=== PATIENT | female | born 1970 | race Caucasian/White ===

== ENCOUNTER 2021-04-10 00:23 | Observation (INO) ==
[2021-04-10 01:10] LABS: Basophils # 0.1 K/mcL (0.0-0.2); Basophils % 0.5 %; Eosinophils # 0.4 K/mcL (0.0-0.6); Eosinophils % 2.9 %; Hematocrit 44.7 % (35.3-44.9); Hemoglobin 14.6 g/dL (11.5-15.4); Immature Granulocytes % 0.2 % (0-4); Lymphocytes # 5.2 K/mcL (0.6-4.6); Lymphocytes % 40.4 %; Mean Corpuscular HGB Conc 32.7 g/dL (31.6-35.5); Mean Corpuscular Hemoglobin 27.3 pg (28.0-33.3); Mean Corpuscular Volume 83.7 fL (83.0-100.0); Mean Platelet Volume 11.5 fL (9.4-12.4); Monocytes # 0.6 K/mcL (0.0-1.3); Monocytes % 4.9 %; Neutrophils # 6.6 K/mcL (1.6-8.9); Platelet Count 270 K/mcL (140-400); Red Blood Count 5.34 M/mcL (3.82-4.97); Red Cell Distribution Width 14.1 % (11.5-14.5); Segmented Neutrophils % 51.1 %; White Blood Count 12.9 K/mcL (4.3-11.1)
[2021-04-10] MEDS ORDERED: Aspirin 81 MG TAB.CHEW PO ONE (01:11)
[2021-04-10] MEDS ORDERED: Nitroglycerin 0.4 MG TAB.SUBL SL ONE (01:12)
[2021-04-10 01:13] LABS: BUN/Creatinine Ratio 15 (6-26); Blood Urea Nitrogen 12 mg/dL (6-20); Calcium 9.5 mg/dL (8.6-10.3); Carbon Dioxide 24 mEq/L (23-29); Chloride 107 mEq/L (98-107); Glucose 90 mg/dL (70-105); Osmolality,Calculated 289 (280-300); Potassium 3.8 mEq/L (3.5-5.1); Sodium 140 mEq/L (136-145); Troponin I < 0.03 ng/mL (< 0.04); eGFR For African Americans > 60 (> 60); eGFR For Non-African Americans > 60 (> 60)
[2021-04-10 01:38] LABS: Prothrombin Time 11.2 Seconds (9.4-12.1)
[2021-04-10 01:41] LABS: Activated Partial Thrombo Time 31.4 Seconds (26.0-36.0)
[2021-04-10] MEDS ORDERED: Nitroglycerin 0.4 MG TAB.SUBL SL PRN (04:42)
[2021-04-10] MEDS ORDERED: Perflutren Lipid Microsphere 1.3 ML in 0.9 % Sodium Chloride 8.7 ML IVP PRN (04:43)
[2021-04-10] MEDS ORDERED: Morphine Sulfate 2 MG/ML SYRINGE IVP PRN (04:43)
[2021-04-10] MEDS ORDERED: Ondansetron 4 MG/2 ML VIAL IVP PRN (04:45)
[2021-04-10] MEDS ORDERED: Naloxone 0.4 MG/ML INJ IVP PRN (04:45)
[2021-04-10] MEDS ORDERED: Albuterol 2.5 MG/3 ML NEBULIZER IH PRN (04:59)
[2021-04-10] MEDS ORDERED: *HR* Heparin 5,000 UNIT/ML VIAL SQ SCH (06:00)
[2021-04-10] MEDS ORDERED: Regadenoson 0.4 MG/5 ML SYRINGE IVP ONE (06:20)
[2021-04-10] MEDS ORDERED: estradioL 1 MG TABLET PO SCH (09:00)
[2021-04-10] MEDS ORDERED: Gabapentin 300 MG CAPSULE PO SCH (09:00)
[2021-04-10] MEDS ORDERED: ARIPiprazole 10 MG TABLET PO SCH (09:00)
[2021-04-10] MEDS ORDERED: Loratadine 10 MG TABLET PO SCH (09:00)
[2021-04-10 09:16] LABS: Bacteria,Urine Few per hpf (None-Few); Bilirubin,Urine Negative (Negative); Blood,Urine Negative (Negative); Clarity,Urine Clear (Clear); Color,Urine Light-Yellow (Yellow); Glucose,Urine (UA) Normal (Normal); Ketones,Urine Negative (Negative); Leukocyte Esterase,Urine Moderate (Negative); Mucus,Urine Few per lpf (None-Few); Nitrite,Urine Positive (Negative); Protein,Urine Negative (Neg-Trace); RBC,Urine 0-3 per hpf (0-3); Specific Gravity,Urine 1.016 (1.010-1.025); Squamous Epithelial Cell,Urine Few per hpf (None-Few); Urobilinogen,Urine Normal (Normal)
[2021-04-10 10:43] VITALS: BP 135/83; PULSE 80; TEMP 98.2; O2SAT 95
[2021-04-10] MEDS ORDERED: Topiramate 25 MG TABLET PO SCH (21:00)
[2021-04-10] MEDS ORDERED: traZODone 50 MG TABLET PO SCH (21:00)
[2021-04-11] MEDS ORDERED: Aspirin Enteric Coated 81 MG Tablet PO SCH (09:00)
== END 2021-04-10 14:31 | disposition left against medical advice (07) ==
LOC: EMEROOARM 00:23 → 3ANU 00:23 → SUATTDRO 03:29 → 3ANU 04:13
PROVIDERS: ADMIT Internal Medicine; ATTEND Pharmacist